=== PATIENT | male | born 1960 | race Caucasian/White ===

== ENCOUNTER 2022-01-11 08:48 | Outpatient (CLI) | payer OTHER, SELFPAY ==
[2022-01-11 14:07] LABS: SARS PCR* Negative SARS-CoV-2 (Negative)
== END 2022-01-11 08:49 | disposition home or self-care (01) ==
LOC: LONREF 08:49
PROVIDERS: PCP Family Medicine; Visit Provider Internal Medicine
DX: Z11.52 Encounter for screening for COVID-19 (principal)
CPT/HCPCS: 87635

== ENCOUNTER 2022-01-12 09:37 | Outpatient (CLI) | payer OTHER, SELFPAY | END 2022-01-12 09:38 | disposition home or self-care (01) | PROVIDERS: PCP Family Medicine; Visit Provider Internal Medicine | DX: Z12.11 Encounter for screening for malignant neoplasm of colon (principal); Z86.010 Personal history of colon polyps | CPT/HCPCS: 45378; J2250; J3010 ==

== ENCOUNTER 2022-02-13 08:54 | Outpatient (CLI) | payer OTHER, SELFPAY ==
[2022-02-13 16:04] LABS: SARS PCR* Negative SARS-CoV-2 (Negative)
== END 2022-02-13 08:55 | disposition home or self-care (01) ==
LOC: LONREF 08:54
PROVIDERS: PCP Family Medicine; Visit Provider Family Medicine
DX: Z20.822 Contact with and (suspected) exposure to COVID-19 (principal); R05.9 Cough, unspecified
CPT/HCPCS: 87635

== ENCOUNTER 2022-04-25 08:47 | Outpatient (CLI) | payer OTHER, SELFPAY ==
[2022-04-25 14:20] LABS: Chloride* 105 mmol/L (96-114); Potassium* 4.5 mmol/L (3.6-5.1); Sodium* 140 mmol/L (135-149)
[2022-04-25 14:22] LABS: Cholesterol* 183 mg/dL (90-199); Creatinine* 0.9 mg/dL (0.5-1.5); Estimated Glomerular Filt Rate 98 ml/min
[2022-04-25 14:23] LABS: Blood Urea Nitrogen* 15 mg/dL (7-30); Calcium* 9.1 mg/dL (8.4-10.6); Carbon Dioxide* 29 mmol/L (20-32); Glucose* 101 mg/dL (60-115); Triglycerides* 106 mg/dL (40-149)
[2022-04-25 14:24] LABS: HDL Cholesterol* 45 mg/dL (>=40); LDL Cholesterol Calculated 117 mg/dL (<100)
== END 2022-04-25 08:48 | disposition home or self-care (01) ==
PROVIDERS: PCP Family Medicine; Visit Provider Family Medicine
DX: E78.5 Hyperlipidemia, unspecified (principal); Z13.1 Encounter for screening for diabetes mellitus; Z12.5 Encounter for screening for malignant neoplasm of prostate
CPT/HCPCS: 80048; 80061; 84153

== ENCOUNTER 2023-07-16 10:41 | Outpatient (CLI) | payer OTHER, SELFPAY | END 2023-07-16 10:42 | disposition home or self-care (01) | PROVIDERS: PCP Family Medicine; Visit Provider Family Medicine | DX: Z00.00 Encounter for general adult medical examination without abnormal findings (principal); E78.5 Hyperlipidemia, unspecified; Z13.1 Encounter for screening for diabetes mellitus; Z12.5 Encounter for screening for malignant neoplasm of prostate | CPT/HCPCS: 80048; 80061; G0103 ==

== ENCOUNTER 2024-11-03 13:47 | Outpatient (CLI) | payer OTHER, SELFPAY | END 2024-11-03 13:48 | disposition home or self-care (01) | PROVIDERS: PCP Family Medicine; Visit Provider Family Medicine | DX: E78.00 Pure hypercholesterolemia, unspecified (principal); Z12.5 Encounter for screening for malignant neoplasm of prostate; Z13.1 Encounter for screening for diabetes mellitus | CPT/HCPCS: 80048; 80061; G0103 ==